=== PATIENT | male | born 1990 | race Caucasian/White ===

== ENCOUNTER 2016-07-20 17:46 | Emergency (ER) | payer OTHER ==
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
[2016-07-20 17:56] VITALS: TEMP 98.1
[2016-07-20 18:32] VITALS: PULSE 89; RESP 16
[2016-07-20] MEDS ORDERED: HYDROmorphONE/DILAUDID 1 MG/ML SYR IVP ONE (18:32)
[2016-07-20 20:24] VITALS: BP 107/70; O2SAT 99
== END 2016-07-20 20:24 | disposition home or self-care (01) ==
PROC: 2W3MX1Z Immobilization of Left Lower Extremity using Splint (ICD-10-PCS; principal; 2016-07-20)
DX: S82.142A Displaced bicondylar fracture of left tibia, initial encounter for closed fracture (principal); V00.318A Other snowboard accident, initial encounter; Y99.8 Other external cause status; Y93.23 Activity, snow (alpine) (downhill) skiing, snowboarding, sledding, tobogganing and snow tubing
CPT/HCPCS: 96374; J1170